=== PATIENT | female | born 1970 | race Caucasian/White ===

== ENCOUNTER 2020-06-01 05:32 | Outpatient (RCR) | payer OTHER ==
[~2020-06-01] VITALS: Ht 154.9 cm; Wt 85.6 kg
[~2020-06-01 05:32] MED LIST: DEXL60CA PO; DIPH25CA79 PO; EPIN0.3P3 IM; FAMO20TA5 PO; IBUP1TAB PO; OXYC1TAB11 PO; PANT40TA52 PO; PRD20T PO; PRX20T PO; SIMV10TA3 PO
== END 2020-06-01 11:41 | disposition home or self-care (01) ==
LOC: PREOP 05:32
PROVIDERS: ATTEND Surgery
DX: Z01.812 Encounter for preprocedural laboratory examination (principal); K21.9 Gastro-esophageal reflux disease without esophagitis; R19.4 Change in bowel habit; Z20.822 Contact with and (suspected) exposure to COVID-19
CPT/HCPCS: 87635

== ENCOUNTER 2020-06-05 09:23 | Day surgery (SDC) | payer OTHER ==
[~2020-06-05] VITALS: Ht 154.9 cm; Wt 85.6 kg
[2020-06-05] MEDS ORDERED: LACTATED RINGERS 1,000 ML IV ONE (09:27)
[2020-06-05] MEDS ORDERED: LACTATED RINGERS 1,000 ML IV STA (09:31)
[2020-06-05 09:45] VITALS: BP 112/73
[2020-06-05] MEDS ORDERED: HURRICAINE EXT TUBE (BENZOCAINE) XX PRN (09:45)
[2020-06-05 09:53] VITALS: BP 112/73
--- NOTE | 2020-06-05 09:56 | Progress Note-Pre Operative ---
Pre-Operative Progress Note H&P Reviewed The H&P was reviewed, patient examined and no changes noted. Time Seen by Provider: 09:53 Date H&P Reviewed: Jun 05, 2020 Time H&P Reviewed: 09:53 Pre-Operative Diagnosis: GERD, Change in bowel habits JENNIE RICE DO Jun 05, 2020 09:56
[2020-06-05] MEDS ORDERED: HURRICAINE EXT TUBE (BENZOCAINE) ONE (10:15)
[2020-06-05] MEDS ORDERED: PROPOFOL INJECTION 50 ML IV ONE (10:26)
[2020-06-05] MEDS ORDERED: MIDAZOLAM 2 MG/2 ML (VERSED) VIAL ONE (10:27)
[2020-06-05 11:25] VITALS: BP 101/60
[2020-06-05 11:30] VITALS: BP 107/63
--- NOTE | 2020-06-05 11:30 | Anesthesia-General Post-Op ---
MAC Patient Condition Mental Status/LOC: Same as Preop Cardiovascular: Satisfactory Nausea/Vomiting: Absent Respiratory: Satisfactory Pain: Controlled Complications: Absent Post Op Complications Complications None Follow Up Care/Instructions Patient Instructions None needed. Anesthesiology Discharge Order Discharge Order Patient is doing well, no complaints, stable vital signs, no apparent adverse anesthesia problems. No complications reported per nursing. MARYANA THORNE CRNA Jun 05, 2020 11:30
[2020-06-05 11:55] VITALS: BP 107/63
--- NOTE | 2020-06-05 12:20 | Progress Note-Post Operative ---
Post-Operative Progess Note Surgeon (s)/Manager Of Procurement (s) Surgeon JENNIE RICE DO Manager Of Procurement: ANTHONY Singh Pre-Operative Diagnosis GERD, Change in bowel habits Post-Operative Diagnosis Colon polyp diverticula int hemorrhoids gastritis Esophagitis Procedure & Operative Findings Date of Procedure 06/05/20 Procedure Performed/Findings EGD with bx Colon with snare Anesthesia Type IV sedation by FILTER WASHER AND PRESSER Estimated Blood Loss Estimated blood loss (mL): scant Specimens/Packing Specimens Removed transverse colon polyp antral bx GE jxn x 2 JENNIE RICE DO Jun 05, 2020 12:20
--- NOTE | 2020-06-05 12:21 | Endoscopy Discharge Instruct ---
Endo Procedure/Findings Findings 1.: Gastritis 2.: Polyp 3.: Diverticulosis 4.: Internal Hemorrhoids Discharge Instructions - Activity: You might feel a little sleepy until tomorrow. This is due to the medicine you received to relax you. Until tomorrow, you should: NOT drive a car, operate machinery or power tools. NOT drink any alcoholic beverages. NOT make any important decisions or sign importortant papers. Do not return to work until tomorrow, unless otherwise instructed. Resume previo us activities tomorrow. Diet: Start by taking liquids. If you tolerate liquids, advance to solid food. 1.: Colonscopy in 5 years 2.: EGD in 3 years Notify Physician - If you experience excessive bleeding, unusual abdominal pain, fever, or chest pain, contact your doctor immediately. JENNIE RICE DO Jun 05, 2020 12:21
[2020-06-05 12:29] VITALS: BP 99/62
--- NOTE | 2020-06-05 21:46 | OPERATIVE REPORT ---
DATE OF SERVICE: 06/05/2020 PREOPERATIVE DIAGNOSES: Gastroesophageal reflux disease as well as change in bowel habits and screening colonoscopy. POSTOPERATIVE DIAGNOSES: Gastritis, esophagitis, colon polyps, diverticula, internal hemorrhoids. PROCEDURES: 1. EGD with biopsy. 2. Colonoscopy with snare polypectomy. SURGEON: Eric Rodriguez DO WOUND TREATMENT RN: Kwasi Santamaria, MS3 ANESTHESIA: IV sedation by the COMFORT STATION SUPERVISOR. SPECIMEN: Transverse colon polyp, biopsy of the antrum, biopsy from the GE junction x2. PROCEDURE NOTE: After informed consent was obtained, the patient was brought to the endoscopy suite, placed in bed in left lateral decubitus position. She was administered IV sedation by the COMFORT STATION SUPERVISOR who monitored her vitals the entire time, heart rate, blood pressure and pulse ox, started with the colonoscopy. Placed the scope in, on the way in, noted some diverticula, took a picture and then in the transverse colon, saw a polyp, did a snare polypectomy of this, able to get suction this up, sent to pathology and then pushed all the way to 150 cm, able to get to the cecum, took a picture of appendiceal orifice, noted the ileocecal valve and then slowly withdrew the scope insufflating to look circumferential braxton looking at the cecum, up the ascending colon to the hepatic flexure, then down the transverse colon, splenic flexure, into the descending colon down into the sigmoid and finally into the rectum, retroflexed in rectal vault, saw some minimal internal hemorrhoids, took a picture of this and then removed the scope. Switched gloves, switched cameras, went above, inserted the EGD, placed the scope down the mouth through the esophagus. At the base of the esophagus, it looked like there was some esophagitis, pushed into the stomach and the stomach there was some little bit of flecks of blood. Pushed into the duodenum, the duodenum looked fine. Pulled back, took a picture of the antrum and did a biopsy here and then retroflexed the scope, may have had a very small hiatal hernia and then pulled the scope up into the GE junction, did a biopsy of the GE junction, did 2 biopsies here actually and then pushed the scope back into the stomach, suctioned all the air out and then pulled the scope up the esophagus and out the mouth. The patient tolerated the procedure. She was recovered in the endoscopy suite. Job ID: [id number] DocumentID: [id number] Dictated Date: 06/05/2020 15:54:58 Assembler [employer]cob [employer]ipes Date: 06/05/2020 21:45:21 Dictated By: ERIC RODRIGUEZ DO
== END 2020-06-05 12:30 | disposition home or self-care (01) ==
LOC: ENDO 09:23
PROVIDERS: ATTEND Surgery
DX: K29.50 Unspecified chronic gastritis without bleeding (principal); D12.3 Benign neoplasm of transverse colon; K21.00 Gastro-esophageal reflux disease with esophagitis, without bleeding; K59.00 Constipation, unspecified; E66.9 Obesity, unspecified; F41.9 Anxiety disorder, unspecified; F32.9 Major depressive disorder, single episode, unspecified; K57.30 Diverticulosis of large intestine without perforation or abscess without bleeding; Z68.35 Body mass index [BMI] 35.0-35.9, adult; Z79.899 Other long term (current) drug therapy; Z20.822 Contact with and (suspected) exposure to COVID-19; Z91.038 Other insect allergy status; Z87.891 Personal history of nicotine dependence; Z90.49 Acquired absence of other specified parts of digestive tract; Z83.3 Family history of diabetes mellitus; Z82.49 Family history of ischemic heart disease and other diseases of the circulatory system
CPT/HCPCS: 88305

== ENCOUNTER 2020-10-08 19:29 | Emergency (ER) | payer OTHER ==
[~2020-10-08] VITALS: Ht 152.4 cm; Wt 75.0 kg
--- NOTE | 2020-10-08 19:41 | ED Headache ---
General Chief Complaint: Head/Cervical Problems Stated Complaint: SEVERE MIGRAINE Source: patient Exam Limitations: no limitations History of Present Illness Date Seen by Provider: Oct 08, 2020 Time Seen by Provider: 19:39 Initial Comments To ER with severe occipital headache sudden in onset just before she got here. She has nausea without vomiting. No fevers chills or recent illness. She does have a history of headaches but not this bad. Timing/Duration: 1-3 hours Severity/Quality: severe Associated Symptoms: nausea/vomiting Allergies and Home Medications Allergies Coded Allergies: wasp venom (Unverified Allergy, Severe, 11/07/13) Home Medications Diphenhydramine HCl 25 Mg Capsule, 50 MG PO HS, (Reported) Pantoprazole Sodium 40 Mg Tablet.dr, 40 MG PO DAILY, (Reported) Paroxetine Hcl 20 Mg Tablet, 20 MG PO DAILY, (Reported) Patient Home Medication List Home Medication List Reviewed: Yes Review of Systems Review of Systems Constitutional: see HPI; No dizziness Eyes: See HPI, Photophobia Ears, Nose, Mouth, Throat: no symptoms reported Respiratory: no symptoms reported Cardiovascular: no symptoms reported; No syncope Gastrointestinal: nausea; No vomiting Genitourinary: no symptoms reported Musculoskeletal: no symptoms reported Skin: no symptoms reported Psychiatric/Neurological: See HPI, Headache Past Gyoygvy-Sobvhu-Eecxzo Hx Seasonal Allergies Seasonal Allergies: Yes Past Medical History Surgeries: Yes (SEPTOPLASTY, LEFT LEG FX, C-SECTIONX3) Gallbladder, Orthopedic Respiratory: No Cardiac: No Neurological: No Genitourinary: No Gastrointestinal: Yes Gastroesophageal Reflux Musculoskeletal: Yes (LEFT SHOULDER, ) Endocrine: No HEENT: No Cancer: No Psychosocial: Yes Anxiety, Depression Integumentary: No Blood Disorders: No Family Medical History Arthritis 19 FATHER Diabetes mellitus 19 FATHER Hypertension 19 FATHER Physical Exam Vital Signs Vital Signs - First Documented 10/08/20 19:52 Temp 36.7 Pulse 100 Resp 22 B/P (MAP) 136/83 (100) Pulse Ox 98 O2 Delivery Room Air Capillary Refill : Height, Weight, BMI Height: 5'1.00" Weight: 181lbs. oz. 82.674733dn; 35.67 BMI Method:Stated General Appearance: WD/WN, mild distress (Related to pain) HEENT: PERRL/EOMI, normal ENT inspection, TMs normal, other (no nystagmus, EMOI. PERRLA. ) Neck: non-tender, full range of motion Cardiovascular: regular rate, rhythm, no murmur Respiratory: no respiratory distress, no accessory muscle use Gastrointestinal: normal bowel sounds, non tender, soft Psychiatric: alert, oriented x 3 Crainal Nerves: normal hearing, normal speech, PERRL Motor/Sensory: no motor deficit, no sensory deficit Skin: normal color, warm/dry Progress/Results/Core Measures Results/Orders My Orders Orders - GARRETT MACK APRN Ketorolac Injection (Toradol Injection) (10/08/20 19:45) Prochlorperazine Injection (Compazine In (10/08/20 19:45) Diphenhydramine Injection (Benadryl Inje (10/08/20 19:45) Ct Head Wo (10/08/20 19:38) Medications Given in ED Current Medications Medications Dose Ordered Sig/Toby Route Start Time Stop Time Status Last Admin Dose Admin Diphenhydramine HCl 25 mg ONCE ONCE IM 10/08/20 19:45 10/08/20 19:46 DC 10/08/20 19:49 25 MG Ketorolac Tromethamine 60 mg ONCE ONCE IM 10/08/20 19:45 10/08/20 19:46 DC 10/08/20 19:49 60 MG Prochlorperazine Edisylate 10 mg ONCE ONCE IM 10/08/20 19:45 10/08/20 19:46 DC 10/08/20 19:49 10 MG Vital Signs/I&O 10/08/20 19:52 Temp 36.7 Pulse 100 Resp 22 B/P (MAP) 136/83 (100) Pulse Ox 98 O2 Delivery Room Air Diagnostic Imaging Diagonstic Imaging: Xray Comments NAME: LIBIA FLANNERY [facility] REC#: [id number] PT STATUS: REG ER : 1970 PHYSICIAN: GARRETT MACK APRN ADMIT DATE: 10/08/20/ER Draft Date of Exam:10/08/20 CT HEAD WO PROCEDURE: CT head without contrast. TECHNIQUE: Multiple contiguous axial images were obtained through the brain without the use of intravenous contrast. Auto Exposure Controls were utilized during the CT exam to meet ALARA standards for radiation dose reduction. INDICATION: Migraine. COMPARISON: None. FINDINGS: Ventricles are normal in size, shape and position. There is no midline shift or mass effect. There is no hemorrhage or evidence of acute ischemia. No extra-axial fluid collection or mass is seen. There is no skull fracture. The paranasal sinuses and mastoids are clear. IMPRESSION: Negative CT head. Dictated on workstation # [id number] Dict: 10/08/201956 Trans: 10/08/202000 E [id number] Interpreted by: RADHA WELLINGTON Electronically signed by: Departure Communication (Admissions) Toradol Compazine Benadryl ordered intramuscular. We will get a CT of her head. 2037-is almost completely gone she rates it at 2 out of 10. She has no nausea. Her CT is unremarkable and since this was done within 6 hours of symptom onset is highly sensitive nearing 100% for subarachnoid hemorrhage. She is alert and oriented. Her is at the bedside. I have discussed return precautions with both of them and they agree to return for any worsening headache nausea vomiting confusion. Impression Primary Impression: Headache Qualified Codes: R51.9 - Headache, unspecified Disposition: HOME, SELF-CARE Condition: Improved Departure-Patient Inst. Decision time for Depature: 20:39 Referrals: [facility] [place] (PCP) Primary Care Physician Add. Discharge Instructions: 1. Return to ER promptly for any worsening headache, nausea vomiting confusion. Follow-up with your doctor this week for recheck. All discharge instructions reviewed with patient and/or family. Voiced understanding. GARRETT MACK SYSTEM DEVELOPER ASSOCIATE MANAGER Oct 08, 2020 19:41
[2020-10-08] MEDS ORDERED: PROCHLORPERAZINE 10 MG/2ML INJ (COMPAZINE) IM ONE (19:45)
[2020-10-08] MEDS ORDERED: diphenhydrAMINE 50 MG/ML INJ (BENADRYL) IM ONE (19:45)
[2020-10-08] MEDS ORDERED: KETOROLAC 60 MG/2 ML VIAL IM ONE (19:45)
--- NOTE | 2020-10-08 20:01 | Diagnostic Imaging Report ---
PROCEDURE: CT head without contrast. TECHNIQUE: Multiple contiguous axial images were obtained through the brain without the use of intravenous contrast. Auto Exposure Controls were utilized during the CT exam to meet ALARA standards for radiation dose reduction. INDICATION: Migraine. COMPARISON: None. FINDINGS: Ventricles are normal in size, shape and position. There is no midline shift or mass effect. There is no hemorrhage or evidence of acute ischemia. No extra-axial fluid collection or mass is seen. There is no skull fracture. The paranasal sinuses and mastoids are clear. IMPRESSION: Negative CT head. Dictated by: Dictated on workstation # [id number]
[2020-10-08 20:46] VITALS: BP 132/72
== END 2020-10-08 20:45 | disposition home or self-care (01) ==
LOC: EDUNIT# 19:29 → ER 19:32
DX: R51.9 Headache, unspecified (principal); K21.9 Gastro-esophageal reflux disease without esophagitis; F41.9 Anxiety disorder, unspecified; F32.9 Major depressive disorder, single episode, unspecified; Z79.899 Other long term (current) drug therapy
CPT/HCPCS: 70450

== ENCOUNTER 2021-08-20 14:35 | Emergency (ER) | payer OTHER ==
[~2021-08-20] VITALS: Ht 155 cm; Wt 86.0 kg
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
--- NOTE | 2021-08-20 15:26 | Diagnostic Imaging Report ---
PROCEDURE: CT chest and abdomen without contrast. TECHNIQUE: Axial images were obtained from the thoracic inlet through the iliac crest without the administration of intravenous contrast. Auto Exposure Controls were utilized during the CT exam to meet ALARA standards for radiation dose reduction. INDICATION: Left chest wall pain, fall. COMPARISON: No prior studies are available for comparison. CT CHEST: There appears to be a nondisplaced fracture involving the left anterior 5th rib. No other rib fractures are identified. The sternum appears intact. There is no pleural fluid identified. No pulmonary contusion or pneumothorax is seen. CT ABDOMEN: The liver and spleen are unremarkable. Gallbladder is surgically absent. The pancreas, adrenal glands and kidneys are unremarkable. Aorta is nonaneurysmal. Bowel loops are normal caliber. There is no free fluid or hemoperitoneum. IMPRESSION: 1. Anterior left 5th rib fracture, nondisplaced. No pulmonary contusion or pneumothorax is seen. 2. Unremarkable noncontrast CT of the abdomen. Dictated by: Dictated on workstation # [id number]
[2021-08-20 15:39] VITALS: BP 115/94
== END 2021-08-20 15:38 | disposition home or self-care (01) ==
LOC: EDUNIT# 14:35 → ER 14:37
DX: S22.32XA Fracture of one rib, left side, initial encounter for closed fracture (principal); V93.35XA Fall on board canoe or kayak, initial encounter
CPT/HCPCS: 71250; 74150